=== PATIENT | female | born 1940 | race Caucasian/White ===

== ENCOUNTER 2022-01-13 18:21 | Inpatient (IN) ==
[2022-01-13] MEDS ORDERED: GLUCAGON 1 MG VIAL IM PRN (19:47)
[2022-01-13] MEDS ORDERED: hydrALAZINE 20 MG/1 ML VIAL IV PRN (19:47)
[2022-01-13] MEDS ORDERED: ZALEPLON 5 MG CAPSULE PO PRN (19:47)
[2022-01-13] MEDS ORDERED: DOCUSATE SODIUM 100 MG CAPSULE PO PRN (19:47)
[2022-01-13 19:51] LABS: Hyaline Casts,Urine 10 /LPF (0-3); Mucus,Urine Many /LPF (Occasional); RBC,Urine 5 /HPF (0-4); Squamous Epithelial Cell,Urine Occasional /HPF (0-10); Urine Appearance Clear (Clear); Urine Color Yellow (Yellow)
[2022-01-13 19:52] LABS: Bilirubin,Urine Negative (Negative); Blood, Urine Negative (Negative); Glucose,Urine (UA) Negative (Negative); Ketones,Urine Negative (Negative); Nitrite,Urine Negative (Negative); Protein,Urine Trace mg/dL (Negative); Urine Specific Gravity 1.025 (1.001-1.035); Urine Urobilinogen 0.2 eU/dL (<2.0); Urine pH 6.5 (4.5-8.0)
[2022-01-13] MEDS ORDERED: ONDANSETRON 4 MG/2 ML VIAL IV ONE (19:52)
[2022-01-13] MEDS ORDERED: MORPHINE 2 MG/1 ML SYRINGE IV STA (19:52)
[2022-01-13] MEDS ORDERED: DEXTROSE 10% 250 ML BAG IV PRN (20:04)
[2022-01-13 20:21] LABS: Albumin 3.8 G/DL (3.4-5.0); Bilirubin,Total 0.6 MG/DL (0.20-1.00); Calcium 9.7 MG/DL (8.5-10.1); Osmolality,Calculated 275.2 MOS/KG (273-304); Potassium 3.9 MMOL/L (3.5-5.1); Total Protein 7.4 G/DL (6.4-8.2)
[2022-01-13 20:27] LABS: Basophils % 0.1 % (0.0-0.8); Hematocrit 37.6 VOL% (35.7-47.0); Hemoglobin 12.6 GM/DL (12.0-16.0); Immature Granulocytes % 1.1 %; Immature Granulocytes Absolute 0.13 #; Lymphocytes # 1.1 10*3/uL (1.4-4.0); Lymphocytes % 9.6 % (21.3-54.2); Mean Corpuscular HGB Conc 33.5 GM/DL (32-36); Mean Platelet Volume 10.5 FL (9.6-12.0); Monocytes # 0.7 10*3/uL (0.11-0.8); Monocytes % 5.7 % (1.7-12.7); Neutrophils % 83.5 % (38.7-73.9); Platelet Count 335 T/CUMM (130-400); Red Blood Count 4.32 MC/CUMM (3.8-5.5); Red Cell Distribution Width 13.3 % (9.3-17.3); White Blood Count 11.4 T/CUMM (4-12)
[2022-01-13] MEDS: HEPARIN 5,000 UNIT/1 ML VIAL SUBCUT SCH (20:36)
[2022-01-13] MEDS: DEXTROSE 5% NACL 0.9% 1,000 ML IV SCH (20:39)
[2022-01-13 20:47] LABS: PT Patient Result 11.4 SECS (10.5-12.0); Partial Thromboplastin Time 24.4 SECS (23.8-32.1)
[2022-01-14] MEDS: ONDANSETRON 4 MG/2 ML VIAL IV PRN ×2 (02:45→07:44)
[2022-01-14] MEDS: MORPHINE 2 MG/1 ML SYRINGE IV PRN (02:47)
[2022-01-14 04:44] LABS: Basophils % 0.1 % (0.0-0.8); Hematocrit 35.3 VOL% (35.7-47.0); Hemoglobin 11.7 GM/DL (12.0-16.0); Immature Granulocytes % 0.4 %; Immature Granulocytes Absolute 0.06 #; Lymphocytes # 1.1 10*3/uL (1.4-4.0); Lymphocytes % 7.3 % (21.3-54.2); Mean Corpuscular HGB Conc 33.1 GM/DL (32-36); Mean Corpuscular Volume 88.9 FL (87-102); Mean Platelet Volume 9.9 FL (9.6-12.0); Monocytes % 6.6 % (1.7-12.7); Neutrophils % 85.6 % (38.7-73.9); Platelet Count 278 T/CUMM (130-400); Red Blood Count 3.97 MC/CUMM (3.8-5.5); Red Cell Distribution Width 13.5 % (9.3-17.3); White Blood Count 14.3 T/CUMM (4-12)
[2022-01-14 05:12] LABS: Potassium 4.5 MMOL/L (3.5-5.1)
[2022-01-14] MEDS ORDERED: PANTOPRAZOLE 40 MG TABLET PO SCH (09:00)
[2022-01-14] MEDS ORDERED: GABAPENTIN 400 MG CAPSULE PO ONE (09:14)
[2022-01-14] MEDS ORDERED: KETAMINE 500 MG/10 ML VIAL ONE (09:23)
[2022-01-14] MEDS ORDERED: DEXMEDETOMIDINE 200 MCG/2 ML VIAL ONE (09:23)
[2022-01-14] MEDS ORDERED: ONDANSETRON 4 MG/2 ML VIAL ONE (09:23)
[2022-01-14] MEDS ORDERED: SODIUM CHLORIDE 0.9% 1,000 ML IV ONE ×2 (09:23→13:45)
[2022-01-14] MEDS ORDERED: buprenorphine HCL 0.3 MG/ML VIAL ONE (09:24)
[2022-01-14] MEDS ORDERED: hydrALAZINE 20 MG/1 ML VIAL ONE (10:49)
[2022-01-14] MEDS ORDERED: ceFAZolin 1,000 MG VIAL ONE (10:49)
[2022-01-14] MEDS ORDERED: propofoL 200 MG/20 ML VIAL IV ONE (10:49)
[2022-01-14] MEDS ORDERED: MAGNESIUM HYDROXIDE SUSP 30 ML UDCUP PO PRN (11:18)
[2022-01-14] MEDS ORDERED: amLODIPine 5 MG TABLET PO SCH (12:00)
[2022-01-14] MEDS ORDERED: ePHEDrine 50 MG/ML VIAL IM ONE (12:08)
[2022-01-14] MEDS ORDERED: ePHEDrine 50 MG/ML VIAL ONE (12:09)
[2022-01-14] MEDS: DEXTROSE 5% NACL 0.9% 1,000 ML IV SCH ×2 (13:25→14:03)
[2022-01-14] MEDS: HEPARIN 5,000 UNIT/1 ML VIAL SUBCUT SCH ×2 (14:01→20:14)
[2022-01-14 14:40] LABS: Hematocrit 31.2 VOL% (35.7-47.0); Hemoglobin 10.1 GM/DL (12.0-16.0)
[2022-01-14 14:57] LABS: Calcium 7.9 MG/DL (8.5-10.1); Osmolality,Calculated 278.8 MOS/KG (273-304)
[2022-01-14] MEDS ORDERED: NOREPINEPHRINE 4 MG in SODIUM CHLORIDE 0.9% 246 ML IV PRN (15:36)
[2022-01-14] MEDS: SODIUM CHLORIDE 0.9% 1,000 ML IV SCH (15:55)
[2022-01-14] MEDS ORDERED: NOREPINEPHRINE 8 MG in SODIUM CHLORIDE 0.9% 242 ML IV PRN (16:00)
[2022-01-14 16:12] LABS: Basophils % 0.1 % (0.0-0.8); Hematocrit 31.3 VOL% (35.7-47.0); Hemoglobin 10.1 GM/DL (12.0-16.0); Immature Granulocytes % 0.8 %; Immature Granulocytes Absolute 0.14 #; Lymphocytes # 1.1 10*3/uL (1.4-4.0); Lymphocytes % 6.7 % (21.3-54.2); Mean Corpuscular HGB Conc 32.3 GM/DL (32-36); Mean Platelet Volume 10.4 FL (9.6-12.0); Monocytes # 1.2 10*3/uL (0.11-0.8); Monocytes % 7.1 % (1.7-12.7); Neutrophils % 85.3 % (38.7-73.9); Platelet Count 217 T/CUMM (130-400); Red Blood Count 3.44 MC/CUMM (3.8-5.5); Red Cell Distribution Width 13.7 % (9.3-17.3); White Blood Count 16.5 T/CUMM (4-12)
[2022-01-14] MEDS: HYDROCORTISONE 100 MG VIAL IV SCH (16:44)
[2022-01-14] MEDS: PANTOPRAZOLE 40 MG VIAL IV SCH (16:48)
[2022-01-14] MEDS: PIPERACILLIN/TAZOBACTAM 3,375 MG in SODIUM CHLORIDE 0.9% 100 ML IV SCH (16:49)
[2022-01-14 18:16] LABS: Hematocrit 31.7 VOL% (35.7-47.0); Hemoglobin 10.3 GM/DL (12.0-16.0)
[2022-01-14] MEDS: ceFAZolin 2,000 MG/50 ML DUPLEX IV SCH (18:37)
[2022-01-15] MEDS: HYDROCORTISONE 100 MG VIAL IV SCH ×4 (01:10→17:11)
[2022-01-15] MEDS: ceFAZolin 2,000 MG/50 ML DUPLEX IV SCH (01:10)
[2022-01-15] MEDS: PIPERACILLIN/TAZOBACTAM 3,375 MG in SODIUM CHLORIDE 0.9% 100 ML IV SCH ×3 (01:11→17:10)
[2022-01-15] MEDS: MORPHINE 2 MG/1 ML SYRINGE IV PRN ×4 (03:16→21:32)
[2022-01-15 03:52] LABS: Basophils % 0.1 % (0.0-0.8); Hematocrit 29.6 VOL% (35.7-47.0); Hemoglobin 9.6 GM/DL (12.0-16.0); Immature Granulocytes % 0.4 %; Immature Granulocytes Absolute 0.05 #; Lymphocytes # 0.6 10*3/uL (1.4-4.0); Lymphocytes % 4.3 % (21.3-54.2); Mean Corpuscular HGB Conc 32.4 GM/DL (32-36); Mean Platelet Volume 9.9 FL (9.6-12.0); Monocytes # 1.1 10*3/uL (0.11-0.8); Monocytes % 8.4 % (1.7-12.7); Neutrophils % 86.8 % (38.7-73.9); Platelet Count 217 T/CUMM (130-400); Red Blood Count 3.29 MC/CUMM (3.8-5.5); Red Cell Distribution Width 13.6 % (9.3-17.3)
[2022-01-15 04:12] LABS: Calcium 8.6 MG/DL (8.5-10.1); Potassium 4.1 MMOL/L (3.5-5.1)
[2022-01-15 04:32] LABS: Band Neutrophils 1 % (0-10); Lymphocytes 9 % (20-55); Total Cells Counted 100
[2022-01-15 04:33] LABS: Microcytosis 1+; Ovalocytes Slight
[2022-01-15 04:34] LABS: Platelet Estimate Normal
[2022-01-15 04:42] LABS: Free T4 (Free Thyroxine) 0.71 NG/DL (0.76-1.46)
[2022-01-15] MEDS ORDERED: LEVOTHYROXINE 100 MCG TABLET PO SCH (06:30)
[2022-01-15] MEDS ORDERED: LEVOTHYROXINE 112 MCG TABLET PO SCH (06:30)
[2022-01-15] MEDS ORDERED: PNEUMOCOCCAL VACCINE (13 VALENT) 0.5 ML SYRINGE IM ONE (08:00)
[2022-01-15] MEDS: SODIUM CHLORIDE 0.9% 1,000 ML IV SCH ×2 (08:05→19:02)
[2022-01-15] MEDS: HEPARIN 5,000 UNIT/1 ML VIAL SUBCUT SCH ×2 (09:14→19:17)
[2022-01-15] MEDS: FLUoxetine 20 MG CAPSULE PO SCH (09:19)
[2022-01-15] MEDS: ASPIRIN 325 MG TABLET PO SCH (09:19)
[2022-01-15] MEDS: CHOLECALCIFEROL 1,000 UNIT TABLET PO SCH (09:19)
[2022-01-15] MEDS: PANTOPRAZOLE 40 MG VIAL IV SCH (10:25)
[2022-01-15] MEDS: SIMVASTATIN 10 MG TABLET PO SCH (21:25)
[2022-01-16] MEDS: HYDROCORTISONE 100 MG VIAL IV SCH ×3 (00:15→16:37)
[2022-01-16] MEDS: PIPERACILLIN/TAZOBACTAM 3,375 MG in SODIUM CHLORIDE 0.9% 100 ML IV SCH ×4 (00:15→23:16)
[2022-01-16 04:30] LABS: Basophils % 0.1 % (0.0-0.8); Hemoglobin 8.2 GM/DL (12.0-16.0); Immature Granulocytes % 0.7 %; Immature Granulocytes Absolute 0.06 #; Lymphocytes % 11.3 % (21.3-54.2); Mean Corpuscular HGB Conc 32.8 GM/DL (32-36); Mean Corpuscular Volume 89.6 FL (87-102); Mean Platelet Volume 10.1 FL (9.6-12.0); Monocytes # 0.9 10*3/uL (0.11-0.8); Monocytes % 11.1 % (1.7-12.7); Neutrophils % 76.8 % (38.7-73.9); Platelet Count 169 T/CUMM (130-400); Red Blood Count 2.79 MC/CUMM (3.8-5.5); Red Cell Distribution Width 13.2 % (9.3-17.3); White Blood Count 8.5 T/CUMM (4-12)
[2022-01-16 04:45] LABS: Osmolality,Calculated 277.7 MOS/KG (273-304); Potassium 3.6 MMOL/L (3.5-5.1)
[2022-01-16] MEDS: MORPHINE 2 MG/1 ML SYRINGE IV PRN ×2 (06:20→23:13)
[2022-01-16] MEDS: LEVOTHYROXINE 125 MCG TABLET PO SCH (06:36)
[2022-01-16] MEDS: HEPARIN 5,000 UNIT/1 ML VIAL SUBCUT SCH ×2 (09:08→20:32)
[2022-01-16] MEDS: ASPIRIN 325 MG TABLET PO SCH (09:08)
[2022-01-16] MEDS: FLUoxetine 20 MG CAPSULE PO SCH (09:08)
[2022-01-16] MEDS: PANTOPRAZOLE 40 MG VIAL IV SCH (09:08)
[2022-01-16] MEDS: CHOLECALCIFEROL 1,000 UNIT TABLET PO SCH (09:08)
[2022-01-16] MEDS: SODIUM CHLORIDE 0.9% 1,000 ML IV SCH (13:50)
[2022-01-16] MEDS: ACETAMINOPHEN 325 MG TABLET PO PRN ×2 (16:37→20:33)
[2022-01-16] MEDS: SIMVASTATIN 10 MG TABLET PO SCH (20:33)
[2022-01-17] MEDS: HYDROCORTISONE 100 MG VIAL IV SCH ×2 (00:16→09:19)
[2022-01-17 04:24] LABS: Basophils % 0.1 % (0.0-0.8); Eosinophils # 0.1 10*3/uL (0.0-0.87); Eosinophils % 1.4 % (0.00-10.9); Hematocrit 25.3 VOL% (35.7-47.0); Hemoglobin 8.3 GM/DL (12.0-16.0); Immature Granulocytes % 0.5 %; Immature Granulocytes Absolute 0.04 #; Lymphocytes # 0.9 10*3/uL (1.4-4.0); Lymphocytes % 12.2 % (21.3-54.2); Mean Corpuscular HGB Conc 32.8 GM/DL (32-36); Mean Corpuscular Volume 89.4 FL (87-102); Mean Platelet Volume 9.7 FL (9.6-12.0); Monocytes # 0.7 10*3/uL (0.11-0.8); Monocytes % 9.7 % (1.7-12.7); Neutrophils % 76.1 % (38.7-73.9); Platelet Count 173 T/CUMM (130-400); Red Blood Count 2.83 MC/CUMM (3.8-5.5); Red Cell Distribution Width 13.3 % (9.3-17.3); White Blood Count 7.6 T/CUMM (4-12)
[2022-01-17 04:41] LABS: Osmolality,Calculated 277.5 MOS/KG (273-304); Potassium 3.5 MMOL/L (3.5-5.1)
[2022-01-17] MEDS: SODIUM CHLORIDE 0.9% 1,000 ML IV SCH ×2 (04:49→09:58)
[2022-01-17] MEDS: LEVOTHYROXINE 125 MCG TABLET PO SCH (05:44)
[2022-01-17] MEDS ORDERED: MORPHINE 2 MG/1 ML SYRINGE IV ONE (07:52)
[2022-01-17] MEDS ORDERED: LACTATED RINGERS 500 ML IV ONE (07:52)
[2022-01-17] MEDS: MORPHINE 2 MG/1 ML SYRINGE IV PRN (07:53)
[2022-01-17] MEDS: HEPARIN 5,000 UNIT/1 ML VIAL SUBCUT SCH ×2 (09:18→20:29)
[2022-01-17] MEDS: PANTOPRAZOLE 40 MG VIAL IV SCH (09:18)
[2022-01-17] MEDS: PIPERACILLIN/TAZOBACTAM 3,375 MG in SODIUM CHLORIDE 0.9% 100 ML IV SCH (09:19)
[2022-01-17] MEDS: ASPIRIN 325 MG TABLET PO SCH (09:20)
[2022-01-17] MEDS: CHOLECALCIFEROL 1,000 UNIT TABLET PO SCH (09:21)
[2022-01-17] MEDS: FLUoxetine 20 MG CAPSULE PO SCH (09:21)
[2022-01-17] MEDS ORDERED: POLYETHYLENE GLYCOL POWDER 17 GM PACK PO PRN (13:13)
[2022-01-17] MEDS: SIMVASTATIN 10 MG TABLET PO SCH (20:30)
[2022-01-18 03:58] LABS: Basophils % 0.3 % (0.0-0.8); Eosinophils # 0.3 10*3/uL (0.0-0.87); Eosinophils % 3.5 % (0.00-10.9); Hematocrit 22.5 VOL% (35.7-47.0); Hemoglobin 7.5 GM/DL (12.0-16.0); Immature Granulocytes % 0.8 %; Immature Granulocytes Absolute 0.06 #; Lymphocytes # 1.7 10*3/uL (1.4-4.0); Lymphocytes % 23.2 % (21.3-54.2); Mean Corpuscular HGB Conc 33.3 GM/DL (32-36); Mean Corpuscular Volume 87.9 FL (87-102); Mean Platelet Volume 9.8 FL (9.6-12.0); Monocytes # 0.6 10*3/uL (0.11-0.8); Monocytes % 8.4 % (1.7-12.7); Neutrophils % 63.8 % (38.7-73.9); Platelet Count 182 T/CUMM (130-400); Red Blood Count 2.56 MC/CUMM (3.8-5.5); Red Cell Distribution Width 13.2 % (9.3-17.3); White Blood Count 7.4 T/CUMM (4-12)
[2022-01-18 04:17] LABS: Osmolality,Calculated 276.7 MOS/KG (273-304); Potassium 3.1 MMOL/L (3.5-5.1)
[2022-01-18] MEDS: LEVOTHYROXINE 125 MCG TABLET PO SCH (05:38)
[2022-01-18] MEDS: POTASSIUM CHLORIDE 20 MEQ TABLET PO PRN ×4 (05:39→13:40)
[2022-01-18] MEDS: ASPIRIN 325 MG TABLET PO SCH (08:18)
[2022-01-18] MEDS: CHOLECALCIFEROL 1,000 UNIT TABLET PO SCH (08:18)
[2022-01-18] MEDS: PANTOPRAZOLE 40 MG VIAL IV SCH (08:18)
[2022-01-18] MEDS: FLUoxetine 20 MG CAPSULE PO SCH (08:18)
[2022-01-18] MEDS: HEPARIN 5,000 UNIT/1 ML VIAL SUBCUT SCH ×2 (08:19→20:42)
[2022-01-18] MEDS: SIMVASTATIN 10 MG TABLET PO SCH (20:42)
[2022-01-18] MEDS: MORPHINE 2 MG/1 ML SYRINGE IV PRN (21:42)
[2022-01-19] MEDS: LEVOTHYROXINE 125 MCG TABLET PO SCH (05:55)
[2022-01-19 06:48] LABS: Basophils % 0.5 % (0.0-0.8); Eosinophils # 0.3 10*3/uL (0.0-0.87); Eosinophils % 4.5 % (0.00-10.9); Hematocrit 24.8 VOL% (35.7-47.0); Hemoglobin 8.2 GM/DL (12.0-16.0); Immature Granulocytes % 1.6 %; Immature Granulocytes Absolute 0.12 #; Lymphocytes # 1.9 10*3/uL (1.4-4.0); Lymphocytes % 24.6 % (21.3-54.2); Mean Corpuscular HGB Conc 33.1 GM/DL (32-36); Mean Corpuscular Volume 88.9 FL (87-102); Mean Platelet Volume 10.3 FL (9.6-12.0); Monocytes # 0.7 10*3/uL (0.11-0.8); Monocytes % 9.7 % (1.7-12.7); Neutrophils % 59.1 % (38.7-73.9); Platelet Count 230 T/CUMM (130-400); Red Blood Count 2.79 MC/CUMM (3.8-5.5); Red Cell Distribution Width 13.5 % (9.3-17.3); White Blood Count 7.6 T/CUMM (4-12)
[2022-01-19 07:04] LABS: Calcium 8.3 MG/DL (8.5-10.1); Osmolality,Calculated 272.8 MOS/KG (273-304); Potassium 3.9 MMOL/L (3.5-5.1)
[2022-01-19] MEDS: HEPARIN 5,000 UNIT/1 ML VIAL SUBCUT SCH (08:40)
[2022-01-19] MEDS: ASPIRIN 325 MG TABLET PO SCH (08:40)
[2022-01-19] MEDS: PANTOPRAZOLE 40 MG VIAL IV SCH (08:40)
[2022-01-19] MEDS: CHOLECALCIFEROL 1,000 UNIT TABLET PO SCH (08:40)
[2022-01-19] MEDS: FLUoxetine 20 MG CAPSULE PO SCH (08:40)
[2022-01-19 12:17] VITALS: BP 135/50
== END 2022-01-19 15:03 | disposition swing bed (61) | DRG 522 ==
LOC: EDBD → EDUNIT# → N.ED 18:21 → N.EDINP 19:47 → N.CC 01-14 12:34 → N.3E 01-18 14:04
PROVIDERS: ADMIT Hospitalist; ATTEND Hospitalist